=== PATIENT | male | born 1940 | race Caucasian/White ===

== ENCOUNTER → 2018-03-02 | Outpatient (CLI) | payer OTHER | LOC: FIMAGING 12:12 | PROVIDERS: ATTEND Physician Assistant | DX: M48.061 Spinal stenosis, lumbar region without neurogenic claudication (principal); R41.89 Other symptoms and signs involving cognitive functions and awareness; M51.16 Intervertebral disc disorders with radiculopathy, lumbar region; M51.37 Other intervertebral disc degeneration, lumbosacral region ==